=== PATIENT | male | born 1940 | race Caucasian/White ===

== ENCOUNTER 2020-11-11 12:56 | Inpatient (IN) | payer OTHER ==
[2020-11-11 13:29] LABS: Basophils % 0.6 % (0-1.3); MPV 8.5 fL (7.6-11.3); RBC Red Blood Cell Count 4.55 M/uL (4.33-5.43)
[2020-11-11] MEDS ORDERED: IPRATROPIUM BROM 0.5MG/2.5ML ONE (13:34)
[2020-11-11] MEDS ORDERED: ALBUTEROL 2.5 MG/3 ML NEB SOL ONE (13:34)
[2020-11-11 13:36] LABS: Protime INR 1.03
--- NOTE | 2020-11-11 13:37 | RAD REPORT ---
EXAM DESCRIPTION: RAD - Chest Single View - 11/11/2020 1:25 pm CLINICAL HISTORY: SOB COMPARISON: None TECHNIQUE: AP portable chest image was obtained 11/11/2020 1:25 pm . FINDINGS: No peripheral mass or consolidation. No pulmonary edema seen. Prominence of the interstiti al markings suspected to be baseline. Heart and vasculature are normal. No measurable pleural effusio n and no pneumothorax. No acute bony abnormality seen. No acute aortic findings suspected. IMPRESSION: No peripheral mass, consolidation or failure finding. Prominence of the interstitial markings believed to be chronic.
[2020-11-11 13:53] LABS: ALT/SGPT 19 U/L (12-78); AST/SGOT 19 U/L (15-37); Alkaline Phosphatase 73 U/L (45-117); BUN Blood Urea Nitrogen 14 mg/dL (7-18); Bicarbonate 25 mmol/L (21-32); Bilirubin Direct 0.1 mg/dL (0-0.2); Bilirubin Total 0.5 mg/dL (0.2-1.0); Glucose Level 125 mg/dL (74-106); Magnesium 2.1 mg/dL (1.8-2.4); NT PRO-BNP 558 pg/mL (<450); Potassium 4.6 mmol/L (3.5-5.1); Protein, Total 8.1 g/dL (6.4-8.2); Sodium Level 140 mmol/L (136-145); Troponin (Emerg Dept Use Only) < 0.02 ng/mL (0.0-0.045)
--- NOTE | 2020-11-11 16:17 | RAD REPORT ---
EXAM DESCRIPTION: CT - Chest For Pe Angio - 11/11/2020 4:07 pm CLINICAL HISTORY: Chest pain. SOB COMPARISON: No comparisons TECHNIQUE: CT angiogram of the pulmonary arteries was performed with MIP. All CT scans are performed using dose optimization technique as appropriate and may include automated exposure control or mA/KV adjustment according to patient size. FINDINGS: Pulmonary thromboembolism is seen in segmental and subsegmental branches of the pulmonary arterial tree bilaterally. A mild right heart strain pattern. No acute aortic finding demonstrated. Aortic atherosclerosis is noted. Mild interstitial pulmonary edema suspected. Small right pleural fluid. No concerning bony finding. IMPRESSION: Acute bilateral pulmonary thromboembolism is present as detailed with mild right heart s train pattern. Mild interstitial pulmonary edema with a small right pleural effusion.
[2020-11-11 16:28] LABS: SARS-COV-2 RT PCR NEGATIVE (NEGATIVE)
--- NOTE | 2020-11-11 16:34 | EDPHYS ---
Physician Documentation [facility] Name: Obed Mireles Age: 80 yrs Sex: Male : 1940 Arrival Date: 11/11/2020 Time: 12:58 Bed 5 Private MD: ED Physician Abhijit Soto HPI: 11/11 13:05 This 80 yrs old Male presents to ER via EMS with complaints of Shortness Of pm1 Breath. 13:05 The patient has shortness of breath at rest. Onset: The symptoms/episode began/occurred pm1 chronic shortness of breath that got worse today. 13:05 Duration: The symptoms are continuous. The patient's shortness of breath is aggravated pm1 by exertion, is alleviated by steroid medication given in route by EMS. Associated signs and symptoms: Pertinent positives: occasional coughing, Pertinent negatives: chest pain, diaphoresis, fever, nausea, vomiting. Severity of symptoms: in the emergency department the symptoms are worse. The patient has not experienced similar symptoms in the past. Historical: - Allergies: 15:28 No Known Allergies; sv - PMHx: 11/12 07:00 Hypertension; CVA; aa5 - Immunization history:: Adult Immunizations unknown. - Social history:: Smoking status: unknown. ROS: 11/11 13:05 Constitutional: Negative for fever, chills, and weight loss, Neck: Negative for injury, pm1 pain, and swelling, Cardiovascular: Negative for chest pain, palpitations, and edema. Abdomen/GI: Negative for abdominal pain, nausea, vomiting, diarrhea, and constipation, Back: Negative for injury and pain, MS/Extremity: Negative for injury and deformity, Skin: Negative for injury, rash, and discoloration, Neuro: Negative for headache, weakness, numbness, tingling, and seizure. Respiratory: Positive for cough, shortness of breath, Negative for wheezing. Exam: 13:05 Constitutional: This is a well developed, well nourished patient who is awake, alert, pm1 and in no acute distress. Head/Face: Normocephalic, atraumatic. 13:05 Skin: Warm, dry with normal turgor. Normal color with no rashes, no lesions, and no evidence of cellulitis. MS/ Extremity: Pulses equal, no cyanosis. Neurovascular intact. Full, normal range of motion. 13:05 Cardiovascular: Exam negative for acute changes, Rate: normal, Rhythm: regular, Pulses: no pulse deficits are appreciated, Edema: is not appreciated. 13:05 Respiratory: mild respiratory distress is noted, Respirations: tachypnea, that is mild, Breath sounds: rhonchi, that are mild, are heard diffusely. 13:05 Abdomen/GI: Exam negative for acute changes, Inspection: abdomen appears normal, Palpation: abdomen is soft and non-tender, in all quadrants. 13:05 Neuro: Exam negative for acute changes, Orientation: is normal, Mentation: is normal, Motor: is normal, moves all fours. Vital Signs: 12:56 BP 192 / 66; Pulse 87; Resp 35; Pulse Ox 92% on R/A; sv 15:15 BP 145 / 63; Pulse 99; Resp 24; Pulse Ox 95% ; sv 16:28 Weight 98.43 kg (R); sv 17:00 BP 135 / 53; Pulse 98; Resp 19; Pulse Ox 97% on 2 lpm NC; sv 18:03 BP 147 / 55; Pulse 98; Resp 24; Pulse Ox 97% on 2 lpm NC; sv 18:30 BP 145 / 71; Pulse 96; Resp 22; Pulse Ox 97% on 2 lpm NC; sv 12:56 Placed on O2 \T\ 2L per NC, O2 sat up to 97%. sv MDM: 13:02 Patient medically screened. pm1 16:27 Data reviewed: vital signs. Data interpreted: Pulse oximetry: on 2L(s) per nasal pm1 canula, is 95 %. Interpretation: normal. Counseling: I had a detailed discussion with the patient and/or guardian regarding: the historical points, exam findings, and any diagnostic results supporting the discharge/admit diagnosis, lab results, radiology results, the need for further work-up and treatment in the hospital. 16:32 ED course: Patient requires admission to the hospital due to supplemental oxygen pm1 demands with PE. Patient 92 % on RA. 11/11 13:04 Order name: Basic Metabolic Panel pm1 11/11 13:04 Order name: CBC with Diff; Complete Time: 13:46 pm1 11/11 13:04 Order name: LFT's; Complete Time: 14:05 pm1 11/11 13:04 Order name: Magnesium; Complete Time: 14:05 pm1 /15 13:04 Order name: NT PRO-BNP; Complete Time: 14:05 pm11/11 13:04 Order name: PT-INR; Complete Time: 13:46 pm11/11 13:04 Order name: Troponin (emerg Dept Use Only); Complete Time: 14:05 pm1 11/11 13:04 Order name: Basic Metabolic Panel; Complete Time: 14:05 EDMS 11/11 13:05 Order name: Flu pm11/11 13:05 Order name: Strep pm11/11 13:06 Order name: Group A Streptococcus Rapid Sc; Complete Time: 15:28 EDMS 11/11 13:06 Order name: Lactate; Complete Time: 14:42 pm11/11 13:06 Order name: Procalcitonin; Complete Time: 14:08 pm11/11 13:06 Order name: Blood Culture Adult (2) pm11/11 15:09 Order name: Throat Culture EDMS 11/11 16:28 Order name: COVID-19/FLU A+B; Complete Time: 17:51 EDMS 11/12 00:48 Order name: Creatine Phosphokinase; Complete Time: 00:57 EDMS 11/12 00:48 Order name: CKMB Creatine Kinase MB; Complete Time: 00:57 EDMS 11/12 00:48 Order name: Troponin I; Complete Time: 00:57 EDMS 11/12 06:11 Order name: CBC with Automated Diff EDMS 11/12 06:45 Order name: Basic Metabolic Panel EDMS 11/12 06:45 Order name: Lipid Profile EDMS 11/12 06:45 Order name: T4 Free EDMS 11/12 06:45 Order name: Magnesium EDMS 11/12 06:45 Order name: Thyroid Stimulating Hormone EDMS 11/11 13:04 Order name: XRAY Chest (1 view); Complete Time: 13:46 pm11/11 13:04 Order name: EKG; Complete Time: 13:05 pm11/11 13:04 Order name: Cardiac monitoring; Complete Time: 13:13 pm11/11 13:04 Order name: EKG - Nurse/Tech; Complete Time: 14:23 pm11/11 13:04 Order name: IV Saline Lock; Complete Time: 13:13 pm11/11 13:04 Order name: Labs collected and sent; Complete Time: 13:13 pm1 11/11 13:04 Order name: O2 Per Protocol; Complete Time: 13:13 pm1 11/11 13:04 Order name: O2 Sat Monitoring; Complete Time: 13:13 pm1 11/11 14:57 Order name: CT Chest For PE Angio; Complete Time: 16:19 pm1 11/11 16:20 Order name: Extrem Venous W Compression Maximilian US; Complete Time: 17:51 pm1 11/12 07:38 Order name: Manual Differential EDMS 11/12 08:43 Order name: Creatine Phosphokinase EDMS 11/12 08:43 Order name: CKMB Creatine Kinase MB EDMS 11/12 08:43 Order name: Troponin I EDMS Administered Medications: 14:06 Drug: Albuterol - atroVENT (3:1) (2.5 mg - 0.5 mg) 3 ml Route: Nebulizer; sv 15:27 Follow up: Response: No adverse reaction sv 16:35 Drug: Lovenox 1 mg/kg Route: Sub-Q; Site: left lower abdomen; sv 17:00 Follow up: Response: No adverse reaction sv Disposition: 11/11/20 16:33 Hospitalization ordered by Gaetano Manzo for Inpatient Admission. Preliminary diagnosis are Pulmonary embolism, Acute embolism and thrombosis of unspecified deep veins of left lower extremity. - Bed requested for Telemetry/MedSurg (Inpatient). - Status is Inpatient Admission. aa5 - Condition is Stable. - Problem is new. - Symptoms have improved. Addendum: 11/15/2020 19:24 Co-signature as Attending Physician, Abhijit Soto MD I agree with the assessment and t w4 plan of care. Signatures: Dispatcher [employer] EDMS Mercedes Alvarez RN RN sv Woody, Diana, RN RN dw Williams, Irene, RN RN iw Calderon, Audri, RN RN aa5 Luciano Springer, STATION TENDER-C STATION TENDER-Cla1 Paco Dominguez, SALES ATTENDANT SALES ATTENDANT pm1 Krystyna Sgugs, Abhijit Gomez RN, ea, MD MD tw4 Corrections: (The following items were deleted from the chart) 11/11 15:00 14:08 CORONAVIRUS ordered. EDMS EDMS 16:36 13:06 Influenza Screen (A ordered. EDMS EDMS 18:18 16:33 Hospitalization Ordered by Gaetano Manzo DO for Observation. Preliminary pm1 diagnosis is Pulmonary embolism. Bed requested for Telemetry/MedSurg (observation). Status is Observation. Condition is Stable. Problem is new. Symptoms have improved. pm1 19:39 18:18 11/11/2020 16:33 Hospitalization Ordered by Gaetano Manzo DO for Inpatient dw Admission. Preliminary diagnosis is Pulmonary embolism; Acute embolism and thrombosis of unspecified deep veins of left lower extremity. Bed requested for Intensive Care Unit. Status is Inpatient Admission. Condition is Stable. Problem is new. Symptoms have improved. pm1 02/16 14:30 02/15 19:39 11/11/2020 16:33 Hospitalization Ordered by Gaetano Manzo DO for Inpatient iw Admission. Preliminary diagnosis is Pulmonary embolism; Acute embolism and thrombosis of unspecified deep veins of left lower extremity. Bed requested for [facility] ER HOLD. Status is Inpatient Admission. Condition is Stable. Problem is new. Symptoms have improved. dw 11/12 15:22 14:30 11/11/2020 16:33 Hospitalization Ordered by Gaetano Manzo DO for Inpatient aa5 Admission. Preliminary diagnosis is Pulmonary embolism; Acute embolism and thrombosis of unspecified deep veins of left lower extremity. Bed requested for Telemetry/MedSurg (Inpatient). Status is Inpatient Admission. Condition is Stable. Problem is new. Symptoms have improved. iw
--- NOTE | 2020-11-11 16:34 | ER ---
Nurse's Notes [facility] Name: Obed Mireles Age: 80 yrs Sex: Male : 1940 Arrival Date: 11/11/2020 Time: 12:58 Bed 5 Private MD: Diagnosis: Pulmonary embolism;Acute embolism and thrombosis of unspecified deep veins of left lower extremity Presentation: 11/11 12:55 Chief complaint: EMS states: SOB that started today. O2 sat 92% on RA, placed on O2 \T\ sv 3L per NC, O2 sat up to 95% with breathing improvement. Solumedrol 125 mg IVP given. Coronavirus screen: Client denies travel out of the [place] in the last 14 days. Client presents with at least one sign or symptom that may indicate coronavirus-19. Standard/surgical mask placed on the client. Provider contacted for isolation considerations. Ebola Screen: No symptoms or risks identified at this time. Risk Assessment: Do you want to hurt yourself or someone else? Patient reports no desire to harm self or others. 12:55 Method Of Arrival: EMS: [facility] sv 12:55 Acuity: ASHLEY 2 sv 12:56 Initial Sepsis Screen: Does the patient meet any 2 criteria? RR > 20 per min. No. sv Patient's initial sepsis screen is negative. Does the patient have a suspected source of infection? No. Patient's initial sepsis screen is negative. Onset of symptoms was November 11, 2020. Triage Assessment: 12:55 General: Appears in no apparent distress. comfortable, well groomed, well developed, sv Behavior is calm, cooperative, appropriate for age. Pain: Denies pain. Neuro: Level of Consciousness is awake, alert, obeys commands, Oriented to person, place, time, situation, Moves all extremities. Full function Speech is normal. Respiratory: Reports shortness of breath at rest on exertion Airway is patent Respiratory effort is even, unlabored, Respiratory pattern is symmetrical, tachypnea Onset: The symptoms/episode began/occurred gradually, the patient has mild shortness of breath. Derm: Skin is intact, Skin is pink, warm \T\ dry. Musculoskeletal: Circulation, motion, and sensation intact. Range of motion: intact in all extremities. Historical: - Allergies: 15:28 No Known Allergies; sv - PMHx: 11/12 07:00 Hypertension; CVA; aa5 - Immunization history:: Adult Immunizations unknown. - Social history:: Smoking status: unknown. Screenin/15 13:00 Abuse screen: Denies threats or abuse. Denies injuries from another. Nutritional sv screening: No deficits noted. Tuberculosis screening: No symptoms or risk factors identified. Fall Risk None identified. Assessment: 14:06 Reassessment: Patient appears in no apparent distress at this time. No changes from sv previously documented assessment. Patient and/or family updated on plan of care and expected duration. Pain level reassessed. Patient is alert, oriented x 3, equal unlabored respirations, skin warm/dry/pink. 16:00 Reassessment: Patient appears in no apparent distress at this time. No changes from sv previously documented assessment. Patient and/or family updated on plan of care and expected duration. Pain level reassessed. Patient is alert, oriented x 3, equal unlabored respirations, skin warm/dry/pink. 16:35 Reassessment: Patient appears in no apparent distress at this time. No changes from sv previously documented assessment. Patient and/or family updated on plan of care and expected duration. Pain level reassessed. Patient is alert, oriented x 3, equal unlabored respirations, skin warm/dry/pink. US at the bedside. 18:00 Reassessment: Patient appears in no apparent distress at this time. Patient and/or sv family updated on plan of care and expected duration. Pain level reassessed. Patient is alert, oriented x 3, equal unlabored respirations, skin warm/dry/pink. Vital Signs: 12:56 BP 192 / 66; Pulse 87; Resp 35; Pulse Ox 92% on R/A; sv 15:15 BP 145 / 63; Pulse 99; Resp 24; Pulse Ox 95% ; sv 16:28 Weight 98.43 kg (R); sv 17:00 BP 135 / 53; Pulse 98; Resp 19; Pulse Ox 97% on 2 lpm NC; sv 18:03 BP 147 / 55; Pulse 98; Resp 24; Pulse Ox 97% on 2 lpm NC; sv 18:30 BP 145 / 71; Pulse 96; Resp 22; Pulse Ox 97% on 2 lpm NC; sv 12:56 Placed on O2 \T\ 2L per NC, O2 sat up to 97%. sv ED Course: 12:55 Maintain EMS IV. Dressing intact. Good blood return noted. Site clean \T\ dry. Gauge \T\ sv site: 20G L AC. 12:58 Patient arrived in ED. bd 13:00 Initial lab(s) drawn, by me, sent to lab. sv 13:02 Paco Dominguez NP is PHCP. pm1 13:02 Abhijit Soto MD is Attending Physician. pm1 13:06 Mercedes Alvarez, RN is Primary Nurse. sv 13:11 Triage completed. sv 13:24 XRAY Chest (1 view) In Process Unspecified. EDMS 14:08 Strep Sent. sv 14:08 Flu Sent. sv 14:22 Group A Streptococcus Rapid Sc Sent. mh5 14:22 Patient has correct armband on for positive identification. Placed in gown. Bed in low mh5 position. Call light in reach. Warm blanket given. alarm security or surveillance monitor on. Pulse ox on. NIBP on. 14:27 EKG done, by ED staff, reviewed by Abhijit Soto MD. mh5 15:28 Awaiting lab results, Awaiting CT Scan. sv 15:28 Basic Metabolic Panel Sent. sv 16:07 CT Chest For PE Angio In Process Unspecified. EDMS 16:32 Gaetano Manzo DO is Hospitalizing Provider. pm1 16:51 Extrem Venous W Compression Maximilian US In Process Unspecified. EDMS 17:00 Awaiting: admission orders. sv 19:24 Report given to Cheikh HOPE and Krystyna RN. sv 19:46 Primary Nurse role handed off by Mercedes Alvarez, JAYY sv 20:09 Krystyna Suggs, JAYY is Primary Nurse. ea 20:09 No provider procedures requiring assistance completed. Patient admitted, IV remains in ea place. 20:09 Patient placed in an exam room, on a stretcher, on pulse oximetry. ea Administered Medications: 14:06 Drug: Albuterol - atroVENT (3:1) (2.5 mg - 0.5 mg) 3 ml Route: Nebulizer; sv 15:27 Follow up: Response: No adverse reaction sv 16:35 Drug: Lovenox 1 mg/kg Route: Sub-Q; Site: left lower abdomen; sv 17:00 Follow up: Response: No adverse reaction sv Outcome: 16:33 Decision to Hospitalize by Provider. pm1 20:09 Admitted to ER Hold. Please see [facility] for further documentation. ea 20:09 Condition: stable 20:09 Instructed on the need for admit, Demonstrated understanding of instructions. 02 15:22 Patient left the ED. 5 Signatures: Dispatcher [employer] EDMS Renetta Kapadia Stephanie, RN RN sv Calderon, Audri, RN RN [facility] Paco Dominguez, ROMERO FRACTIONATION PLANT SUPERVISOR 1 Becky Bed[facility] Krystyna Suggs RN RN ea Corrections: (The following items were deleted from the chart) 11/11 15:00 14:21 CORONAVIRUS drawn and sent. [address]
[2020-11-11] MEDS ORDERED: ENOXAPARIN 100 MG/ML SYR SQ ONE (16:49)
--- NOTE | 2020-11-11 17:14 | RAD REPORT ---
EXAM DESCRIPTION: US - Extrem Venous W Compress Maximilian - 11/11/2020 4:51 pm CLINICAL HISTORY: shortness of breath, PE Bilateral leg edema and swelling. COMPARISON: No comparisons TECHNIQUE: Real-time sonographic interrogation of the left and right lower extremity deep venous sys tems was performed. FINDINGS: Acute DVT is seen in the left popliteal vein extending into the calf. No right-sided DVT s een. IMPRESSION: Acute left popliteal vein DVT extending into the calf.
--- NOTE | 2020-11-11 18:38 | P.HP ---
Certification for Inpatient Patient admitted to: Inpatient With expected LOS: >2 Midnights Patient will require the following post-hospital care: None Practitioner: I am a practitioner with admitting privileges, knowledge of patient current condition, hospital course, and medical plan of care. Services: Services provided to patient in accordance with Admission requirements found in Title 42 Section 412.3 of the Code of Federal Regulations Patient History Date of Service: 11/11/20 Primary Care Provider: Dr. Sparks; Cardiology-Dr. Lee Reason for admission: Shortness of breath History of Present Illness: 80-year-old male with history of CAD with prior stent, CVA, hypertension, hyperlipidemia. Patient presented with acute shortness of breath starting today. Patient takes Norvasc, Lipitor, Lasix, Bystolic and Plavix. Shortness of breath was acute. No significant chest pain noted. No recent travel. Patient was brought in by EMS. In the ER patient was evaluated. Patient appeared short of breath. Some tachypnea noted. Patient was satting 92% on room air. Blood pressure slightly elevated upon admission. White count 7.9, hemoglobin 14. Platelet count 285. Sodium 140, potassium 4.6. BUN of 14, creatinine 1.16 with a GFR 60. Glucose 125. BNP 5 5 8. Pro calcitonin negative. Troponin negative. CT scan revealed acute bilateral pulmonary thromboembolism with mild heart strain pattern. Mild interstitial pulmonary edema with small right pleural effusion noted. Patient was placed on oxygen. Lovenox at 1 milligram/kilogram subcu given. Patient was admitted for further evaluation and treatment. When I saw the patient ER, patient appeared stable, blood pressure improved. Patient on nasal cannula. Tachypnea noted. Allergies No Known Allergies Allergy (Verified 11/11/20 14:07) - Past Medical/Surgical History Diabetic: No -: CAD with prior stent -: History of CVA -: Hyperlipidemia -: Hypertension -: Prior tobacco use -: Prior alcohol use -: CAD with prior stent Psychosocial/ Personal History: Patient is - Family History Family History: Reviewed- Non-Contributory - Social History Smoking Status: Former smoker Alcohol use: No CD- Drugs: No Caffeine use: No Place of Residence: Home Review of Systems General: As per HPI Eyes: Unremarkable ENT: Unremarkable Respiratory: Shortness of Breath, SOB with Excertion, As per HPI Cardiovascular: Unremarkable Gastrointestinal: As per HPI Genitourinary: Unremarkable Musculoskeletal: Unremarkable Integumentary: Unremarkable Neurological: Unremarkable Lymphatics: Unremarkable Physical Examination - Physical Exam General: Alert, Oriented x3, Cooperative, Mild distress HEENT: Atraumatic, Mucous membr. moist/pink Neck: Supple Respiratory: Diminished (Slightly diminished to the bases), Other (Tachypnea noted.) Cardiovascular: Normal pulses, Regular rate/rhythm Gastrointestinal: Normal bowel sounds, Soft and benign, Non-distended, No tenderness, No masses, No rebound, No guarding Musculoskeletal: No tenderness, No warmth Integumentary: No tenderness/swelling, No erythema, No warmth, No cyanosis Neurological: Normal speech, Normal strength at 5/5 x4 extr, Normal tone, Normal affect - Studies Laboratory Data (last 24 hrs) 11/11/20 13:00: PT 11.9, INR 1.03 11/11/20 13:00: WBC 7.90, Hgb 14.3, Hct 42.0, Plt Count 285 11/11/20 13:00: Sodium 140, Potassium 4.6, BUN 14, Creatinine 1.16, Glucose 125 H, Magnesium 2.1, Total Bilirubin 0.5, AST 19, ALT 19, Alkaline Phosphatase 73 Microbiology Data (last 24 hrs): 11/11/20 14:06 Throat Group A Streptococcus Rapid Screen - Final Assessment and Plan - Plan Impression: Dyspnea secondary to acute bilateral pulmonary thromboembolism with mild right heart strain pattern and small right pleural effusion CAD with prior stent History of CVA Hypertension Hyperlipidemia Plan: Dyspnea secondary to acute bilateral pulmonary thromboembolism with mild right heart strain pattern and small right pleural effusion: Patient will admitted to ICU. Will monitor the patient closely. Maintain blood pressure at slightly elevated level. Will monitor for hypotension and hypoxemia. Lovenox at 1 milligram/kilogram subcu twice daily has been started. Case discussed with pulmonology. Pulmonology to evaluate patient in the morning. If patient wors ens patient may required tPA. Will provide oxygen to maintain sats above 93%. Will hold Lasix and aggressive blood pressure control at this time. Echocardiogram ordered to further evaluate heart strain. Cardiology consulted to further assess is well. Will monitor telemetry and cardiac enzymes. Patient will be admitted to ICU for close monitoring. Care discussed in detail with patient and . Patient understands if his condition worsens patient may require tPA. CAD with prior stent: Continue with Lovenox as directed. History of CVA: Hold Plavix Hypertension: Will provide metoprolol but maintain systolic around 140-160. Will keep from being aggressive on blood blood pressure control at this time. Hyperlipidemia: Continue Lipitor. will check fasting lipid panel. Discharge Plan: Home Plan to discharge in: 72 Hours - Advance Directives Does patient have a Living Will: No Does patient have a Durable POA for Healthcare: No - Code Status/Comfort Care Code Status Assessed: Yes (Patient is full code) Time Spent Managing Pts Care (In Minutes): 55
[2020-11-11] MEDS ORDERED: ONDANSETRON 4 MG/2 ML VIAL IV PRN (20:19)
[2020-11-11 20:44] VITALS: BMI 32.0
[2020-11-11] MEDS ORDERED: ATORVASTATIN 40 MG TAB PO SCH (21:00)
[2020-11-11] MEDS ORDERED: ATORVASTATIN 20 MG TAB ONE (21:37)
[2020-11-11] MEDS: ENOXAPARIN 100 MG/ML SYR SQ SCH (22:00)
[2020-11-12 00:44] LABS: CKMB Creatine Kinase MB 7.7 ng/mL (0.3-3.6)
[2020-11-12 00:48] LABS: Troponin I 0.58 ng/mL (0.0-0.045)
[2020-11-12] MEDS ORDERED: METOPROLOL TAR 25 MG TAB PO SCH (06:00)
[2020-11-12 06:08] LABS: Absolute Lymphocytes (CBC) 0.4 K/uL (0.7-4.9); Basophils % 0.4 % (0-1.3); Hematocrit 38.5 % (39.6-49.0); Lymphocytes % 2.5 % (15.3-44.8); MPV 8.3 fL (7.6-11.3); RBC Red Blood Cell Count 4.21 M/uL (4.33-5.43)
[2020-11-12] MEDS: ACETAMINOPHEN 500 MG TAB PO PRN (06:33)
[2020-11-12] MEDS ORDERED: METOPROLOL TAR 25 MG TAB ONE (06:37)
[2020-11-12 06:45] LABS: Magnesium 2.3 mg/dL (1.8-2.4); Potassium 4.4 mmol/L (3.5-5.1); Thyroid Stimulating Hormone 0.545 uIU/mL (0.360-3.740)
[2020-11-12] MEDS ORDERED: ACETAMINOPHEN 500 MG TAB ONE (06:51)
[2020-11-12 07:37] LABS: Blood Morphology Comment NOT SEEN (NOT SEEN); Platelet Estimate ADEQ
[2020-11-12] MEDS ORDERED: ENOXAPARIN 100 MG/ML SYR SQ ONE (08:35)
[2020-11-12 08:38] LABS: Troponin I 1.59 ng/mL (0.0-0.045)
[2020-11-12 08:43] LABS: CKMB Creatine Kinase MB 11.1 ng/mL (0.3-3.6)
[2020-11-12] MEDS: ENOXAPARIN 100 MG/ML SYR SQ SCH ×2 (09:00→21:41)
[2020-11-12] MEDS ORDERED: INFLUENZA VACCINE (for 3y+) 0.5 ML DOSE IMVAC ONE (09:00)
[2020-11-12] MEDS ORDERED: PNEUMOCOCCAL VACCINE 0.5 ML IMVAC ONE (09:00)
--- NOTE | 2020-11-12 09:32 | P.PN ---
Subjective Date of Service: 11/12/20 Primary Care Provider: Dr. Sparks; Cardiology-Dr. Lee Chief Complaint: Shortness of breath Subjective: Improving (Patient stable on 4 L per nasal cannula. Shortness of breath improved.) Physical Examination - Vital Signs Temperature: 98.2 F Blood Pressure: 176/62 Pulse: 79 Respirations: 16 Pulse Ox (%): 93 - Studies Laboratory Data (last 24 hrs) 11/11/20 13:00: PT 11.9, INR 1.03 11/11/20 13:00: WBC 7.90, Hgb 14.3, Hct 42.0, Plt Count 285 11/11/20 13:00: Sodium 140, Potassium 4.6, BUN 14, Creatinine 1.16, Glucose 125 H, Magnesium 2.1, Total Bilirubin 0.5, AST 19, ALT 19, Alkaline Phosphatase 73 Microbiology Data (last 24 hrs): 11/11/20 13:58 Blood - Blood Anaerobic Blood Culture - Final 11/11/20 13:40 Blood - Blood Anaerobic Blood Culture - Final 11/11/20 14:06 Throat Group A Streptococcus Rapid Screen - Final Assessment & Plan Discharge Plan: Home Plan to discharge in: Greater than 2 days Physician Review Additional Text: Physical exam: Patient alert, cooperative. No significant distress noted. Heart: Regular rate and rhythm Lungs: Aeration improved. Slight decreased to the bases Abdomen: Soft nontender nondistended Extremities: Good range motion to the upper lower extremities. No focal deficits noted. Impression: Dyspnea secondary to acute bilateral pulmonary thromboembolism with mild right heart strain pattern and small right pleural effusion Elevated troponin likely related to above versus NSTEMI complicated with history of CAD and prior stent History of CVA Hypertension Hyperlipidemia Plan: Dyspnea secondary to acute bilateral pulmonary thromboembolism with mild right heart strain pattern and small right pleural effusion: Patient currently on 4 L per nasal cannula. Continue Lovenox at 1 milligram/kilogram subcu twice daily. Await echocardiogram to evaluate for cardiac strain. Continue to hold Lasix. Will adjust blood pressure medication accordingly. Pulmonology and Cardiology consulted. Case discussed with pulmonology yesterday. Await further recommendations from pulmonology. Continue to monitor closely. Elevated troponin likely related to above versus NSTEMI complicated with history of CAD and prior stent: Patient with elevated troponin. Likely related to above verses NSTEMI. Will discuss case further with cardiology. Patient with prior history of CAD and stent. Echo obtained. History of CVA: Continue to hold Plavix since the patient is on Lovenox full dose. Hypertension: Will slowly adjust metoprolol. Will keep from being aggressive on blood blood pressure control at this time. Hyperlipidemia: LDL 127. Will adjust Lipitor. Time Spent Managing Pts Care (In Minutes): 55
--- NOTE | 2020-11-12 10:01 | EKG ---
Test Date: 2020-11-11 Test Time: 13:57:59 [employer] Supervisor: BRENDON MEASUREMENT RESULTS: Intervals: Rate: 69 OH: 188 QRSD: 144 QT: 424 QTc: 454 [place]: P: 40 OH: 188 QRS: -74 T: 20 INTERPRETIVE STATEMENTS: Normal sinus rhythm Right bundle branch block Left anterior fascicular block Bifascicular block Moderate voltage criteria for LVH, may be normal variant Abnormal ECG No previous ECG available for comparison Electronically Signed On 11-12-20 09:59:33 [employer]REELANCE DESIGNER by Vlad Beauchamp
--- NOTE | 2020-11-12 11:01 | P.CNS ---
Date of Consult: 11/12/20 Reason for Consult: Pulmonary embolism Primary Care Provider: Dr. Sparks; Cardiology-Dr. Lee Chief Complaint: Shortness of breath History of Present Illness: {t i s80 yrs of age Hx of CAD and stent Aw Acute SOB and Dx with PE.No recent surgery .Feeling nnwell for 2 wks. No prior Hxof DVT or PE. Still SOb Allergies No Known Allergies Allergy (Verified 11/11/20 14:07) Home Medications: Amlodipine [Norvasc*] 10 mg PO DAILY 11/12/20 Ezetimibe 10 mg PO DAILY 11/12/20 Losartan Potassium 100 mg PO DAILY 11/12/20 Nebivolol HCl [Bystolic] 5 mg PO DAILY 11/12/20 Tamsulosin [Flomax*] 0.4 mg PO BID 11/12/20 - Past Medical/Surgical History Diabetic: No -: CAD with prior stent -: History of CVA -: Hyperlipidemia -: Hypertension -: Prior tobacco use -: Prior alcohol use -: CAD with prior stent Psychosocial/ Personal History: Patient is - Social History Alcohol use: No CD- Drugs: No Caffeine use: No Place of Residence: Home Review of Systems General: Weakness Respiratory: Shortness of Breath Physical Examination Temp Pulse Resp BP Pulse Ox 98.2 F 79 16 176/62 H 93 11/12/20 09:31 11/12/20 09:31 11/12/20 09:31 11/12/20 09:31 11/12/20 09:31 General: Alert, In no apparent distress, Oriented x3 Respiratory: Clear to auscultation bilaterally Cardiovascular: No edema, Regular rate/rhythm Gastrointestinal: Normal bowel sounds, Soft and benign Laboratory Data (last 24 hrs) 11/11/20 13:00: PT 11.9, INR 1.03 11/11/20 13:00: WBC 7.90, Hgb 14.3, Hct 42.0, Plt Count 285 11/11/20 13:00: Sodium 140, Potassium 4.6, BUN 14, Creatinine 1.16, Glucose 125 H, Magnesium 2.1, Total Bilirubin 0.5, AST 19, ALT 19, Alkaline Phosphatase 73 Conclusions/Impression: Patient is 80 years of age admitted with pulmonary embolism this is acute pulmonary embolism he has some right ventricular stain elevated troponin he is currently doing well room-air sat is 95% blood pressure is elevated labs CT scan reviewed patient can be discharged home on Xarelto or Eliquis long treatment he also has a left-sided DVT patient is not a candidate for thrombolytics therapy patient has a history of hypertension resume all his home medications follow with me in 2 week discuss with cardiology he probably going to need an outpatient stress test as is troponin is elevated I suspect is from the right ventricular strain ambulate Physician Review: Patient Assessed, Agree with Above Assessment and Plan
[2020-11-12] MEDS: METOPROLOL TAR 50 MG TAB PO SCH (18:28)
[2020-11-12] MEDS: ATORVASTATIN 80 MG TAB PO SCH (21:41)
[2020-11-13] MEDS: ACETAMINOPHEN 500 MG TAB PO PRN (00:43)
[2020-11-13] MEDS ORDERED: HYDRALAZINE HCL 20 MG/ML VIAL IV ONE (01:28)
[2020-11-13] MEDS: METOPROLOL TAR 50 MG TAB PO SCH ×2 (04:29→16:34)
[2020-11-13 05:57] LABS: Hematocrit 38.1 % (39.6-49.0); RBC Red Blood Cell Count 4.17 M/uL (4.33-5.43)
[2020-11-13 05:58] LABS: Absolute Lymphocytes (CBC) 1.6 K/uL (0.7-4.9); Basophils % 0.4 % (0-1.3); Lymphocytes % 11.8 % (15.3-44.8); MPV 8.2 fL (7.6-11.3)
[2020-11-13 06:18] LABS: Magnesium 2.5 mg/dL (1.8-2.4); Potassium 4.3 mmol/L (3.5-5.1)
[2020-11-13] MEDS ORDERED: APIXABAN 5 MG TABLET PO SCH ×2 (09:00→21:00)
[2020-11-13] MEDS: AMLODIPINE 10 MG TAB PO SCH (10:03)
[2020-11-13] MEDS: EZETIMIBE 10 MG TAB PO SCH (10:03)
[2020-11-13] MEDS: TAMSULOSIN 0.4 MG SR CAP PO SCH ×2 (10:03→21:35)
[2020-11-13] MEDS: LOSARTAN POTASSIUM 50 MG TABLET PO SCH ×2 (10:04→21:35)
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
[2020-11-13] MEDS ORDERED: APIXABAN 2.5 MG TABLET PO SCH (12:45)
[2020-11-13] MEDS: ATORVASTATIN 80 MG TAB PO SCH (21:35)
[2020-11-13] MEDS: APIXABAN 2.5 MG TABLET PO SCH (21:35)
[2020-11-14 04:43] LABS: Absolute Lymphocytes (CBC) 1.5 K/uL (0.7-4.9); Basophils % 0.4 % (0-1.3); Hematocrit 40.6 % (39.6-49.0); Lymphocytes % 17.6 % (15.3-44.8); MPV 8.4 fL (7.6-11.3); RBC Red Blood Cell Count 4.44 M/uL (4.33-5.43)
[2020-11-14 04:53] LABS: Magnesium 2.1 mg/dL (1.8-2.4); Potassium 4.5 mmol/L (3.5-5.1)
[2020-11-14] MEDS: METOPROLOL TAR 50 MG TAB PO SCH ×2 (05:04→17:40)
[2020-11-14] MEDS: CLOPIDOGREL 75 MG TABLET PO SCH (10:03)
[2020-11-14] MEDS: AMLODIPINE 10 MG TAB PO SCH (10:03)
[2020-11-14] MEDS: EZETIMIBE 10 MG TAB PO SCH (10:04)
[2020-11-14] MEDS: TAMSULOSIN 0.4 MG SR CAP PO SCH ×2 (10:04→20:36)
[2020-11-14] MEDS: LOSARTAN POTASSIUM 50 MG TABLET PO SCH ×2 (10:04→20:35)
[2020-11-14] MEDS: APIXABAN 2.5 MG TABLET PO SCH ×2 (10:04→20:35)
--- NOTE | 2020-11-14 11:56 | PN ---
Date of Progress Note: 11/13/2020 Mr. Mireles was admitted on 11/11/2020 for bilateral pulmonary embolism. He had right ventricular st rain. He had elevated BNP and troponin. He had a venous doppler showing CAD, status post stent . Overnight, he had done well. His oxygen saturation has improved. He remained on low-dose oxygen. Echocardiogram today showed normal ejection fraction. No wall motion abnormalitie s. He had a right ventricular systolic pressure of 43 mmHg consistent with pulmonary embolism. Had no further recommendations . I will leave his discharge planning up to Dr. Mayo and Dr Rasheeda Manzo. I will see him in the office in next 2 to 4 weeks if he wishes. VAISHALI/GELACIO Voice ID: [id number] Report ID: [id number]
--- NOTE | 2020-11-14 12:04 | ECHO ---
HEIGHT: 5 ft 9 in WEIGHT: 217 lb 0.016 oz DATE OF STUDY: 11/13/[address]: Gaetano Manzo DO 2-DIMENSIONAL: YES M.MODE: YES DOPPLER: YES COLOR FLOW: YES TDS: NO PORTABLE: NO DEFINITY: NO BUBBLE STUDY: NO DIAGNOSIS: EVALUATE FOR CONGESTIVE HEART FAILURE CARDIAC HISTORY: CATHERIZATION: SURGERY: PROSTHETIC VALVE: PACEMAKER: MEASUREMENTS (cm) DIASTOLIC (NORMALS) SYSTOLIC (NORMALS) IVSd 1.2 (0.6-1.2) LA Diam 4.4 (1.9-4.0) LVEF 76% LVIDd 4.8 (3.5-5.7) LVIDs 2.7 (2.0-3.5) %FS 45% LVPWd 1.2 (0.6-1.2) Ao Diam 2.4 (2.0-3.7) 2 DIMENSIONAL ASSESSMENT: RIGHT ATRIUM: NORMAL LEFT ATRIUM: DILATED RIGHT VENTRICLE: NORMAL LEFT VENTRICLE: NORMAL TRICUSPID VALVE: NORMAL MITRAL VALVE: MITRAL ANNULAR CALCIFICATION PULMONIC VALVE: NORMAL AORTIC VALVE: SCLEROSIS PERICARDIAL EFFUSION: NONE AORTIC ROOT: NORMAL LEFT VENTRICULAR WALL MOTION: NORMAL. DOPPLER/COLOR FLOW: MILD PULMONARY HYPERTENSION - RIGHT VENTRICULAR SYSTOLIC PRESSURE 42mmHg. COMMENTS: NORMAL EJECTION FRACTION WITH LEFT VENTRICULAR SIZE. MILD PULMONARY HYPERTENSION - 42mmHg. MITRAL ANNULAR CALCIFICATION. AORTIC SCLEROSIS. TECHNOLOGIST: NOAH DELONG
--- NOTE | 2020-11-14 15:43 | CON ---
Date of Consultation: 11/12/2020 Reason For Consultation: Bilateral pulmonary embolus, elevated troponin. History Of Present Illness: Mr. Mireles is an 80-year-old male, history of coronary artery disease, followed by Dr. Lee, status post stent many years ago. , dyslipidemia and hypertension , came in with left popliteal vein DVT with pulmonary embolus bilaterally, right ventricular strain b y EKG. He had come in with shortness of breath. No chest pain, nausea, vomiting. He had diaphoresi s. Denied PND, orthopnea, pedal edema, palpitations or syncope. The patient has not followed up wit Dr. Lee because he does not want to go to [place] for followup. Past Medical History: As stated above, also include history of cerebrovascular disease. Allergies: NONE. Review of Systems: Negative. Social History: Negative. Family History: Negative. Medications: Presently include Lovenox, metoprolol, Lipitor and Eliquis. Physical Examination: Vital Signs: Stable. Afebrile. HEENT: Negative. Neck: Supple without bruit. Chest: Clear. Cardiac: Revealed a regular rhythm and rate. No murmurs, gallops or rubs. Abdomen: Benign. Extremities: Revealed no clubbing, cyanosis or edema. Diagnostic Data: CT angiogram revealed bilateral pulmonary embolus . EKG showed right ese tricular strain . Impression And Plan: 1.Right ventricular strain, elevated troponin, elevated BNP, all secondary to bilateral embolus. Ec hocardiogram is pending. Dr. Mayo is following. put the patient on Eliquis. The pat ient has been on Lovenox, metoprolol and Lipitor. I agree with the present regimen. We will see wha t the echocardiogram shows. He remains short of breath and is on oxygen. 2.Hypertension, well controlled. 3.Dyslipidemia. 4.History of peripheral vascular disease. 5.History of coronary artery disease status post stent. I agree with his present regimen. We will check the echocardiogram. I have given the patient the op tion to follow up with me. . I will continue to follow him. NB/MODL Voice ID: [id number] Report ID: [id number]
--- NOTE | 2020-11-14 16:20 | RAD REPORT ---
EXAM DESCRIPTION: RAD - Os Calcis (Calcaneus) Heel - 11/14/2020 4:12 pm CLINICAL HISTORY: left heel pain COMPARISON: No comparisons FINDINGS: There is a large screw noted within the calcaneus. No lucency is seen around the screw. Sm all posterior and large plantar calcaneal spur. Moderate soft tissue thickening is seen adjacent to h eal.
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
[2020-11-14] MEDS: ATORVASTATIN 80 MG TAB PO SCH (20:36)
[2020-11-14] MEDS: ACETAMINOPHEN 500 MG TAB PO PRN (22:52)
[2020-11-15 05:30] LABS: Magnesium 2.3 mg/dL (1.8-2.4); Potassium 4.6 mmol/L (3.5-5.1)
[2020-11-15] MEDS: METOPROLOL TAR 50 MG TAB PO SCH (07:43)
[2020-11-15] MEDS: AMLODIPINE 10 MG TAB PO SCH (09:00)
[2020-11-15] MEDS: EZETIMIBE 10 MG TAB PO SCH (09:00)
[2020-11-15] MEDS: LOSARTAN POTASSIUM 50 MG TABLET PO SCH (09:00)
[2020-11-15] MEDS: TAMSULOSIN 0.4 MG SR CAP PO SCH (09:00)
[2020-11-15] MEDS: CLOPIDOGREL 75 MG TABLET PO SCH (09:00)
--- NOTE | 2020-11-15 09:11 | P.DS ---
Admission Date: 11/11/20 Discharge Date: 11/15/20 Primary Care Provider: Dr. Sparks; Cardiology-Dr. Lee Disposition: DC HOME/HOME HEALTH CARE Discharge Condition: GOOD Reason for Admission: Shortness of breath Consultations: Cardiology-Dr. Beauchamp Pulmonary-Dr. Myao Procedures: COVID/Influenza: Negative CT scan: FINDINGS: Pulmonary thromboembolism is seen in segmental and subsegmental branches of the pulmonary arterial tree bilaterally. A mild right heart strain pattern. No acute aortic finding demonstrated. Aortic atherosclerosis is noted. Mild interstitial pulmonary edema suspected. Small right pleural fluid. No concerning bony finding. IMPRESSION: Acute bilateral pulmonary thromboembolism is present as detailed with mild right heart strain pattern. Mild interstitial pulmonary edema with a small right pleural effusion. ECHO: MEASUREMENTS (cm) DIASTOLIC (NORMALS) SYSTOLIC (NORMALS) IVSd 1.2 (0.6-1.2) LA Diam 4.4 (1.9-4.0) LVEF 76% LVIDd 4.8 (3.5-5.7) LVIDs 2.7 (2.0-3.5) %FS 45% LVPWd 1.2 (0.6-1.2) Ao Diam 2.4 (2.0-3.7) 2 DIMENSIONAL ASSESSMENT: RIGHT ATRIUM: NORMAL LEFT ATRIUM: DILATED RIGHT VENTRICLE: NORMAL LEFT VENTRICLE: NORMAL TRICUSPID VALVE: NORMAL MITRAL VALVE: MITRAL ANNULAR CALCIFICATION PULMONIC VALVE: NORMAL AORTIC VALVE: SCLEROSIS PERICARDIAL EFFUSION: NONE AORTIC ROOT: NORMAL LEFT VENTRICULAR WALL MOTION: NORMAL. DOPPLER/COLOR FLOW: MILD PULMONARY HYPERTENSION RIGHT VENTRICULAR SYSTOLIC PRESSURE 42mmHg. COMMENTS: NORMAL EJECTION FRACTION WITH LEFT VENTRICULAR SIZE. MILD PULMONARY HYPERTENSION 42mmHg. MITRAL ANNULAR CALCIFICATION. AORTIC SCLEROSIS Xray: COMPARISON: No comparisons FINDINGS: There is a large screw noted within the calcaneus. No lucency is seen around the screw. Small posterior and large plantar calcaneal spur. Moderate so ft tissue thickening is seen adjacent to heal. Medical Problem List: Dyspnea secondary to acute bilateral pulmonary thromboembolism with mild right heart strain pattern and small right pleural effusion Elevated troponin secondary to ischemic demand complicated with history of CAD and prior stent History of DVT History of CVA Hypertension Hyperlipidemia Left heel pain likely related to small posterior/large plantar calcaneal spur with history of surgery and large screw in place within the calcaneus Brief History of Present Illness: 80-year-old male with history of CAD with prior stent, CVA, hypertension, hyperlipidemia. Patient presented with acute shortness of breath starting today. Patient takes Norvasc, Lipitor, Lasix, Bystolic and Plavix. Shortness of breath was acute. No significant chest pain noted. No recent travel. Patient was brought in by EMS. In the ER patient was evaluated. Patient appeared short of breath. Some tachypnea noted. Patient was satting 92% on room air. Blood pressure slightly elevated upon admission. White count 7.9, hemoglobin 14. Platelet count 285. Sodium 140, potassium 4.6. BUN of 14, creatinine 1.16 with a GFR 60. Glucose 125. BNP 5 5 8. Pro calcitonin negative. Troponin negative. CT scan revealed acute bilateral pulmonary thromboembolism with mild heart strain pattern. Mild interstitial pulmonary edema with small right pleural effusion noted. Patient was placed on oxygen. Lovenox at 1 milligram/kilogram subcu given. Patient was admitted for further evaluation and treatment. When I saw the patient ER, patient appeared stable, blood pressure improved. Patient on nasal cannula. Tachypnea noted. Hospital Course: Patient presented with Dyspnea secondary to acute bilateral pulmonary thromboembolism with mild right heart strain pattern and small right pleural effusion. The patient was admitted for further evaluation and treatment. The patient was started Lovenox. Patient did not require any clot buster-tPA. Patient also found to have elevated troponin likely from ischemic demand related to the bilateral pulmonary embolism. Patient with underlying history of CAD and prior stent. Patient reports history of DVT in the past. The patient was seen and evaluated by pulmonology and Cardiology. Echo showed ejection fraction around 76% with mild pulmonary hypertension. The patient has done well. No significant shortness of breath noted at discharge. Arrangement for home oxygen has been made. Patient has been transition to Eliquis. No further cardiac intervention required. Medications have been adjusted. At discharge the patient will continue with home oxygen to maintain sats above 93%. Patient currently on 2 L per nasal cannula. Recommend to continue a 1500 cc per day fluid restriction and low-salt diet. Recommend to monitor his weight daily. If his weight increases by more than 5 lb he is to contact his PCP or cardiology for further recommendation. At discharge the patient will continue with Eliquis 10 mg twice daily for 5 more days then this will be decreased to 5 mg 1 pill twice daily. Patient will need to continue on Eliquis indefinitely due to his past history of DVT. Recommend follow up with cardiology in 2-4 weeks to follow up this hospitalization. Patient will require further cardiac workup including outpatient stress test once stabilize, especially with his multiple risk factors. Patient will need a follow up with pulmonology in 1 week to follow up this hospitalization and continue his care. Pulmonology will further wean the patient off oxygen and further determine on whether patient will continue with Eliquis indefinitely. Recommend follow up with PCP in 1 week to follow up this hospitalization. Education on pulmonary embolism and Eliquis provided. Patient with hypertension. Pulmonary hypertension noted on echocardiogram. Medications have been adjusted. Blood pressure stable. At discharge patient will no longer take by a systolic. At discharge patient will continue with Norvasc 10 mg daily, losartan 100 mg daily and metoprolol 50 mg 1 pill twice daily. Recommend to maintain blood pressure less than 130/80. Further adjustment can be done by his PCP. Patient with history of CVA and CAD with prior stent. As mentioned above patie nt should follow up with cardiology in 2-4 weeks. Recommend outpatient cardiac workup to include cardiac stress test to further monitor. Patient will no longer take aspirin as the patient will be on Eliquis. The patient may continue with Plavix 75 mg daily. Education on Eliquis and Plavix provided. Recommend no further use of nonsteroidal anti-inflammatories as the patient will be on Eliquis and Plavix. Patient with hyperlipidemia. LDL 127. Medications have been adjusted. At discharge patient will continue with Lipitor 80 mg daily and Zetia 10 mg daily. Recommend to recheck fasting lipid panel in 4-6 weeks to monitors progress. Further adjustment can be done by his PCP or cardiology. Patient had left heel pain up on discharge. No evidence of cellulitis, erythema or swelling noted. Patient with history of surgery in the past requiring large screw into the calcaneus. X-ray shows no fracture. Posterior plantar calcaneal spur noted. This is the likely cause of his pain. Recommend to use ice as needed for pain and swelling. Patient may take Tylenol as needed for pain. Recommend follow up with orthopedics or podiatry to further monitor and adjust. Patient may require special boot in the future if this persists. Vital Signs/Physical Exam: Temp Pulse Resp BP Pulse Ox 97.6 F 62 18 151/65 H 94 11/15/20 04:00 11/15/20 07:43 11/15/20 04:00 11/15/20 07:43 11/15/20 04:00 General: Alert, In no apparent distress, Oriented x3, Cooperative HEENT: Atraumatic Neck: Supple Respiratory: Other (improved air movement. clear anteriorly. ) Cardiovascular: Normal pulses, Regular rate/rhythm Gastrointestinal: No tenderness, No masses, No rebound, No guarding Musculoskeletal: Other (Tenderness to the left heel. No erythema. No swelling.) Neurological: Normal speech, Normal strength at 5/5 x4 extr, Normal tone, Normal affect Laboratory Data at Discharge: WBC 8.30 K/uL (4.3-10.9) D 11/14/20 04:02 Hgb 13.9 g/dL (13.6-17.9) 11/14/20 04:02 Hct 40.6 % (39.6-49.0) 11/14/20 04:02 Plt Count 270 K/uL (152-406) 11/14/20 04:02 PT 11.9 SECONDS (9.5-12.5) 11/11/20 13:00 INR 1.03 11/11/20 13:00 Sodium 140 mmol/L (136-145) 11/15/20 04:44 Potassium 4.6 mmol/L (3.5-5.1) 11/15/20 04:44 BUN 25 mg/dL (7-18) H 11/15/20 04:44 Creatinine 1.13 mg/dL (0.55-1.3) 11/15/20 04:44 Glucose 100 mg/dL (74-106) 11/15/20 04:44 Magnesium 2.3 mg/dL (1.8-2.4) 11/15/20 04:44 Total Bilirubin 0.5 mg/dL (0.2-1.0) 11/11/20 13:00 AST 19 U/L (15-37) 11/11/20 13:00 ALT 19 U/L (12-78) 11/11/20 13:00 Alkaline Phosphatase 73 U/L (45-117) 11/11/20 13:00 Troponin I 1.59 ng/mL (0.0-0.045) H* D 11/12/20 07:29 Triglycerides 130 mg/dL (<150) 11/12/20 05:45 Cholesterol 188 mg/dL (<200) 11/12/20 05:45 HDL Cholesterol 35 mg/dL (40-60) L 11/12/20 05:45 Cholesterol/HDL Ratio 5.37 11/12/20 05:45 Home Medications: Amlodipine [Norvasc*] 10 mg PO DAILY 11/12/20 Ezetimibe 10 mg PO DAILY 11/12/20 Losartan Potassium 100 mg PO DAILY 11/12/20 Tamsulosin [Flomax*] 0.4 mg PO BID 11/12/20 Apixaban [Eliquis] 5 mg PO SEECOM #80 tablet 11/15/20 Atorvastatin Calcium [Lipitor] 80 mg PO BEDTIME #30 tab 11/15/20 Metoprolol Tartrate [Lopressor*] 50 mg PO BID 6AM 6PM #60 tab 11/15/20 New Medications: Apixaban [Eliquis] 5 mg PO SEECOM #80 tablet Atorvastatin Calcium [Lipitor] 80 mg PO BEDTIME #30 tab Metoprolol Tartrate [Lopressor*] 50 mg PO BID 6AM 6PM #60 tab Physician Discharge Instructions: Follow up with PCP in 1 week to follow up this hospitalization. Patient presented with Dyspnea secondary to acute bilateral pulmonary thromboembolism with mild right heart strain pattern and small right pleural effusion. The patient was admitted for further evaluation and treatment. The patient was started Lovenox. Patient did not require any clot buster-tPA. Patient also found to have elevated troponin likely from ischemic demand related to the bilateral pulmonary embolism. Patient with underlying history of CAD and prior stent. Patient reports history of DVT in the past. The patient was seen and evaluated by pulmonology and Cardiology. Echo showed ejection fraction around 76% with mild pulmonary hypertension. The patient has done well. No significant shortness of breath noted at discharge. Arrangement for home oxygen has been made. Patient has been transition to Eliquis. No further cardiac intervention required. Medications have been adjusted. At discharge the patient will continue with home oxygen to maintain sats above 93%. Patient currently on 2 L per nasal cannula. Recommend to continue a 1500 cc per day fluid restriction and low-salt diet. Recommend to monitor his weight daily. If his weight increases by more than 5 lb he is to contact his PCP or cardiology for further recommendation. At discharge the patient will continue with Eliquis 10 mg twice daily for 5 more days then this will be decreased to 5 mg 1 pill twice daily. Patient will need to continue on Eliquis indefinitely due to his past history of DVT. Recommend follow up with cardiology in 2-4 weeks to follow up this hospitalization. Patient will require further cardiac workup including outpatient stress test once stabilize, especially with his multiple risk factors. Patient will need a follow up with pulmonology in 1 week to follow up this hospitalization and continue his care. Pulmonology will further wean the patient off oxygen and further determine on whether patient will continue with Eliquis indefinitely. Recommend follow up with PCP in 1 week to follow up this hospitalization. Education on pulmonary embolism and Eliquis provided. Patient with hypertension. Pulmonary hypertension noted on echocardiogram. Medications have been adjusted. Blood pressure stable. At discharge patient will no longer take by a systolic. At discharge patient will continue with Norvasc 10 mg daily, losartan 100 mg daily and metoprolol 50 mg 1 pill twice daily. Recommend to maintain blood pressure less than 130/80. Further adjustment can be done by his PCP. Patient with history of CVA and CAD with prior stent. As mentioned above pat ient should follow up with cardiology in 2-4 weeks. Recommend outpatient cardiac workup to include cardiac stress test to further monitor. Patient will no longer take aspirin as the patient will be on Eliquis. The patient may continue with Plavix 75 mg daily. Education on Eliquis and Plavix provided. Recommend no further use of nonsteroidal anti-inflammatories as the patient will be on Eliquis and Plavix. Patient with hyperlipidemia. LDL 127. Medications have been adjusted. At discharge patient will continue with Lipitor 80 mg daily and Zetia 10 mg daily. Recommend to recheck fasting lipid panel in 4-6 weeks to monitors progress. Further adjustment can be done by his PCP or cardiology. Patient had left heel pain up on discharge. No evidence of cellulitis, erythema or swelling noted. Patient with history of surgery in the past requiring large screw into the calcaneus. X-ray shows no fracture. Posterior plantar calcaneal spur noted. This is the likely cause of his pain. Recommend to use ice as needed for pain and swelling. Patient may take Tylenol as needed for pain. Recommend follow up with orthopedics or podiatry to further monitor and adjust. Patient may require special boot in the future if this persists. Diet: AHA Activity: Fall precautions Followup: NONE,NONE [Primary Care Provider] - Time spent managing pt's care (in minutes): 55
[2020-11-15 09:59] VITALS: O2SAT 94
[2020-11-15 11:42] VITALS: BP 155/64; TEMP 97.7
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
[2020-11-15] MEDS ORDERED: APIXABAN 5 MG TABLET PO SCH (21:00)
== END 2020-11-15 12:16 | disposition home health service (06) | DRG 175 ==
LOC: ER 12:56 → ERHOLD 18:16 → 2ND 11-12 14:56
PROVIDERS: ADMIT Family Medicine; ATTEND Family Medicine
DX: I26.99 Other pulmonary embolism without acute cor pulmonale (principal); I50.33 Acute on chronic diastolic (congestive) heart failure; I24.8 Other forms of acute ischemic heart disease; I82.432 Acute embolism and thrombosis of left popliteal vein; I11.0 Hypertensive heart disease with heart failure; E78.5 Hyperlipidemia, unspecified; M77.32 Calcaneal spur, left foot; I27.20 Pulmonary hypertension, unspecified; F41.9 Anxiety disorder, unspecified; I25.10 Atherosclerotic heart disease of native coronary artery without angina pectoris; R77.8 Other specified abnormalities of plasma proteins; Z86.73 Personal history of transient ischemic attack (TIA), and cerebral infarction without residual deficits; Z95.5 Presence of coronary angioplasty implant and graft; Z79.02 Long term (current) use of antithrombotics/antiplatelets; Z79.899 Other long term (current) drug therapy; Z87.891 Personal history of nicotine dependence; Z86.718 Personal history of other venous thrombosis and embolism; Z79.01 Long term (current) use of anticoagulants; Z20.822 Contact with and (suspected) exposure to COVID-19
CPT/HCPCS: 0240U; 36415; 71045; 71275; 73650; 80048; 80061; 80076; 82550; 82553; 83605; 83735; 83880; 84145; 84439; 84443; 84484; 85025; 85610; 87040; 87070; 87081; 93005; 93306; 93970; 96372; 99285; J0360; J1650; Q9967